=== PATIENT | male | born 1945 | race Caucasian/White ===

== ENCOUNTER 2019-12-25 12:52 | Observation (INO) ==
[2019-12-25 13:45] LABS: INR 1.6; Prothrombin Time 18.4 Seconds (9.4-12.1)
[2019-12-25 13:47] LABS: Activated Partial Thrombo Time 37.7 Seconds (26.0-36.0)
[2019-12-25 13:55] LABS: Hematocrit 23.6 % (37.5-50.1); Hemoglobin 7.5 g/dL (12.9-16.9); Mean Corpuscular HGB Conc 31.8 g/dL (31.6-35.5); Mean Corpuscular Hemoglobin 31.9 pg (28.0-33.3); Mean Corpuscular Volume 100.4 fL (83.0-100.0); Mean Platelet Volume 12.2 fL (9.4-12.4); Platelet Count 179 K/mcL (140-400); Red Blood Count 2.35 M/mcL (4.19-5.50); Red Cell Distribution Width 20.7 % (11.5-14.5); White Blood Count 7.4 K/mcL (4.3-11.1)
[2019-12-25 14:03] LABS: Albumin 4.3 g/dL (3.5-5.7); Albumin/Globulin Ratio 1.3 (1.1-2.2); Bilirubin,Total 0.7 mg/dL (0.3-1.0); Calcium 9.9 mg/dL (8.6-10.3); Globulin 3.2 g/dL (2.4-3.5); Potassium 3.6 mEq/L (3.5-5.1); Total Protein 7.5 g/dL (6.4-8.9)
[2019-12-25 14:22] LABS: Lymphocytes # 1.3 K/mcL (0.6-4.6)
[2019-12-25 14:23] LABS: Monocytes # 0.2 K/mcL (0.0-1.3); Neutrophils # 5.5 K/mcL (1.6-8.9); Platelet Estimate Normal (Normal)
[2019-12-25 14:24] LABS: Anisocytosis 1+ (Not Present); Poikilocytosis 2+ (Not Present)
[2019-12-25] MEDS ORDERED: 0.9 % Sodium Chloride 500 ML ONE (15:08)
[2019-12-25] MEDS ORDERED: Ondansetron 4 MG/2 ML VIAL IVP PRN (15:17)
[2019-12-25] MEDS ORDERED: Naloxone 0.4 MG/ML INJ IVP PRN (15:17)
[2019-12-25] MEDS ORDERED: Acetaminophen 325 MG TABLET PO PRN (15:17)
[2019-12-25] MEDS ORDERED: SODIUM CHLORIDE/NAHCO3/KCL/PEG 4,000 ML SOLN.RECON PO ONE (17:00)
[2019-12-25] MEDS ORDERED: D5% in Water 1,000 ML IVC PRN (18:28)
[2019-12-25] MEDS ORDERED: Dextrose Gel 15 GM/37.5 ML TUBE PO PRN ×2 (18:28)
[2019-12-25] MEDS ORDERED: *HR* Dextrose 50 % in Water (Syg) 50 ML SYRINGE IVP PRN (18:28)
[2019-12-25] MEDS ORDERED: Insulin LISPRO 300 UNITS/3 ML VIAL SQ SCH (21:00)
[2019-12-25] MEDS: lisinopriL 20 MG TABLET PO SCH (21:14)
[2019-12-25 22:22] LABS: Hematocrit 28.5 % (37.5-50.1)
[2019-12-25 22:23] LABS: Hemoglobin 9.1 g/dL (12.9-16.9)
[2019-12-26 08:20] LABS: Calcium 9.8 mg/dL (8.6-10.3); Potassium 3.4 mEq/L (3.5-5.1)
[2019-12-26 08:23] LABS: Hematocrit 26.1 % (37.5-50.1); Hemoglobin 8.4 g/dL (12.9-16.9); Immature Platelets 11.4 % (1.1-6.1); Mean Corpuscular HGB Conc 32.2 g/dL (31.6-35.5); Mean Corpuscular Hemoglobin 31.7 pg (28.0-33.3); Mean Corpuscular Volume 98.5 fL (83.0-100.0); Mean Platelet Volume 13.4 fL (9.4-12.4); Red Blood Count 2.65 M/mcL (4.19-5.50); Red Cell Distribution Width 21.3 % (11.5-14.5); White Blood Count 6.7 K/mcL (4.3-11.1)
[2019-12-26] MEDS: Insulin LISPRO 300 UNITS/3 ML VIAL SQ SCH ×2 (08:59→14:31)
[2019-12-26] MEDS ORDERED: amLODIPine 5 MG TABLET PO SCH (09:00)
[2019-12-26] MEDS ORDERED: *HR* Rivaroxaban 10 MG TABLET PO SCH (09:00)
[2019-12-26] MEDS: lisinopriL 20 MG TABLET PO SCH (09:56)
[2019-12-26] MEDS ORDERED: 0.9 % Sodium Chloride 500 ML IVC SCH (11:45)
[2019-12-26 14:07] VITALS: BP 123/55
== END 2019-12-26 16:04 | disposition home or self-care (01) ==
LOC: 3ANU 12:52 → EMEROOARM 12:52 → SUATTDRO 16:32 → 3ANU 17:27
PROVIDERS: ADMIT Internal Medicine; ATTEND Pharmacist

== ENCOUNTER 2020-01-28 13:29 | Inpatient (IN) ==
[2020-01-28] MEDS ORDERED: Isovue-370 500 ML BOTTLE IVP ONE (13:46)
[2020-01-28 14:11] LABS: INR 1.2; Prothrombin Time 13.9 Seconds (9.4-12.1)
[2020-01-28 14:14] LABS: Hematocrit 26.3 % (37.5-50.1); Hemoglobin 8.1 g/dL (12.9-16.9); Mean Corpuscular HGB Conc 30.8 g/dL (31.6-35.5); Mean Corpuscular Hemoglobin 30.6 pg (28.0-33.3); Mean Corpuscular Volume 99.2 fL (83.0-100.0); Mean Platelet Volume 12.3 fL (9.4-12.4); Platelet Count 253 K/mcL (140-400); Red Blood Count 2.65 M/mcL (4.19-5.50); Red Cell Distribution Width 21.3 % (11.5-14.5); White Blood Count 7.1 K/mcL (4.3-11.1)
[2020-01-28 14:35] LABS: BUN/Creatinine Ratio 23 (6-26); Blood Urea Nitrogen 47 mg/dL (8-23); Calcium 9.5 mg/dL (8.6-10.3); Carbon Dioxide 25 mEq/L (23-29); Chloride 107 mEq/L (98-107); Glucose 172 mg/dL (70-105); Osmolality,Calculated 302 (280-300); Potassium 4.4 mEq/L (3.5-5.1); Sodium 138 mEq/L (136-145); Troponin I < 0.03 ng/mL (< 0.04); eGFR For African Americans 39 (> 60); eGFR For Non-African Americans 32 (> 60)
[2020-01-28] MEDS ORDERED: Furosemide 20 MG/2 ML VIAL IVP ONE (14:48)
[2020-01-28] MEDS ORDERED: Naloxone 0.4 MG/ML INJ IVP PRN (15:50)
[2020-01-28 15:52] LABS: Lymphocytes # 0.9 K/mcL (0.6-4.6); Monocytes # 0.3 K/mcL (0.0-1.3); Neutrophils # 5.3 K/mcL (1.6-8.9)
[2020-01-28 15:53] LABS: Large Platelets Present (Not Present); Platelet Estimate Normal (Normal); Polychromasia 1+ (Not Present)
[2020-01-28 15:54] LABS: Anisocytosis 2+ (Not Present)
[2020-01-28 15:55] LABS: Basophilic Stippling 1+ (Not Present)
[2020-01-28 15:57] LABS: Acanthocytes 2+ (Not Present); Poikilocytosis 2+ (Not Present)
[2020-01-28 16:25] LABS: Alanine Aminotransferase 102 Units/L (7-52); Albumin 4.3 g/dL (3.5-5.7); Albumin/Globulin Ratio 1.4 (1.1-2.2); Alkaline Phosphatase 328 Units/L (34-104); Aspartate Amino Transferase 60 Units/L (13-39); Bilirubin,Direct 0.3 mg/dL (0.0-0.2); Bilirubin,Indirect 0.7 mg/dL (0.0-1.0); Globulin 3.1 g/dL (2.4-3.5); Total Protein 7.4 g/dL (6.4-8.9)
[2020-01-28 16:34] LABS: Thyroid Stimulating Hormone 10.306 mcIU/mL (0.340-5.600)
[2020-01-28] MEDS ORDERED: *HR* Dextrose 50 % in Water (Syg) 50 ML SYRINGE IVP PRN (16:41)
[2020-01-28] MEDS ORDERED: D5% in Water 1,000 ML IVC PRN (16:41)
[2020-01-28] MEDS ORDERED: Dextrose Gel 15 GM/37.5 ML TUBE PO PRN ×2 (16:41)
[2020-01-28] MEDS: Furosemide 20 MG/2 ML VIAL IVP SCH (19:35)
[2020-01-28] MEDS: Sucralfate 1 GM TABLET PO SCH (19:35)
[2020-01-29 06:00] LABS: Calcium 9.2 mg/dL (8.6-10.3)
[2020-01-29] MEDS ORDERED: *HR* Heparin 5,000 UNIT/ML VIAL SQ SCH (06:00)
[2020-01-29 06:42] LABS: Folate > 22.3 ng/mL (3.0-16.0); Vitamin B12 1416 pg/mL (250-1100)
[2020-01-29] MEDS: Famotidine 20 MG TABLET PO SCH (08:18)
[2020-01-29] MEDS: Furosemide 20 MG/2 ML VIAL IVP SCH ×2 (08:18→21:52)
[2020-01-29] MEDS: Sucralfate 1 GM TABLET PO SCH ×2 (08:19→21:53)
[2020-01-29] MEDS: amLODIPine 5 MG TABLET PO SCH (08:19)
[2020-01-29] MEDS: Aspirin Enteric Coated 81 MG Tablet PO SCH (08:19)
[2020-01-29] MEDS: Insulin LISPRO 300 UNITS/3 ML VIAL SQ SCH ×3 (08:37→16:44)
[2020-01-29] MEDS ORDERED: lisinopriL 5 MG TABLET PO SCH (09:00)
[2020-01-29] MEDS ORDERED: Insulin LISPRO 300 UNITS/3 ML VIAL SQ SCH (21:00)
[2020-01-30] MEDS: Famotidine 20 MG TABLET PO SCH (07:18)
[2020-01-30] MEDS: Aspirin Enteric Coated 81 MG Tablet PO SCH (07:18)
[2020-01-30] MEDS: Furosemide 20 MG/2 ML VIAL IVP SCH (07:19)
[2020-01-30] MEDS: Sucralfate 1 GM TABLET PO SCH (07:19)
[2020-01-30] MEDS: Insulin LISPRO 300 UNITS/3 ML VIAL SQ SCH ×2 (07:38→11:26)
[2020-01-30] MEDS: amLODIPine 5 MG TABLET PO SCH (07:38)
[2020-01-30 10:22] LABS: Calcium 9.3 mg/dL (8.6-10.3); Potassium 3.9 mEq/L (3.5-5.1)
[2020-01-30 11:26] VITALS: BP 146/59
[2020-01-30] MEDS ORDERED: *HR* Enoxaparin 30 MG/0.3 ML SYRINGE SQ SCH (21:00)
[2020-01-31] MEDS ORDERED: lisinopriL 5 MG TABLET PO SCH (09:00)
== END 2020-01-30 15:07 | disposition home or self-care (01) | DRG 291 ==
LOC: EMEROOARM 13:29 → 2NENU 13:29
PROVIDERS: ADMIT Internal Medicine; ATTEND Internal Medicine

== ENCOUNTER 2021-05-11 14:23 | Inpatient (IN) ==
[2021-05-11] MEDS ORDERED: Acetaminophen 325 MG TABLET PO ONE (14:50)
[2021-05-11] MEDS ORDERED: 0.9 % Sodium Chloride 1,000 ML IVC ONE (14:58)
[2021-05-11] MEDS ORDERED: Vancomycin 1,500 MG/265 ML IV.SOLN IVPB ONE (14:58)
[2021-05-11] MEDS ORDERED: Cefepime HCl 2,000 MG in Water for inj. (sterile) 10 ML IVP ONE (14:58)
[2021-05-11 15:20] LABS: Hematocrit 24.3 % (37.5-50.1); Hemoglobin 7.9 g/dL (12.9-16.9); Immature Platelets 8.9 % (1.1-6.1); Mean Corpuscular HGB Conc 32.5 g/dL (31.6-35.5); Mean Corpuscular Hemoglobin 29.7 pg (28.0-33.3); Mean Corpuscular Volume 91.4 fL (83.0-100.0); Mean Platelet Volume 12.5 fL (9.4-12.4); Platelet Count 125 K/mcL (140-400); Red Blood Count 2.66 M/mcL (4.19-5.50); Red Cell Distribution Width 16.4 % (11.5-14.5); White Blood Count 2.7 K/mcL (4.3-11.1)
[2021-05-11 15:25] LABS: INR 1.5; Prothrombin Time 16.8 Seconds (9.4-12.1)
[2021-05-11 15:28] LABS: Activated Partial Thrombo Time 32.7 Seconds (26.0-36.0)
[2021-05-11 15:46] LABS: Albumin 3.9 g/dL (3.5-5.7); Albumin/Globulin Ratio 1.2 (1.1-2.2); Bilirubin,Direct 0.3 mg/dL (0.0-0.2); Bilirubin,Indirect 0.7 mg/dL (0.0-1.0); Calcium 8.9 mg/dL (8.6-10.3); Globulin 3.3 g/dL (2.4-3.5); Magnesium 1.9 mg/dL (1.6-2.6); Phosphorous 2.6 mg/dL (2.7-4.5); Potassium 4.3 mEq/L (3.5-5.1); Total Protein 7.2 g/dL (6.4-8.9); Troponin I 0.41 ng/mL (< 0.04)
[2021-05-11 15:59] LABS: Lymphocytes # 0.5 K/mcL (0.6-4.6); Monocytes # 0.1 K/mcL (0.0-1.3); Neutrophils # 2.1 K/mcL (1.6-8.9); Platelet Estimate Decreased (Normal); Reactive Lymphocytes Present (Not Present)
[2021-05-11 16:40] LABS: VBG HCO3 21 mEq/L (21-27); VBG PCO2 32 mmHg (41-51); VBG PH 7.43 pH Units (7.32-7.42); VBG PO2 148 mmHg (25-50)
[2021-05-11] MEDS ORDERED: Aspirin 81 MG TAB.CHEW PO STA (17:00)
[2021-05-11] MEDS ORDERED: Ondansetron ODT 4 MG TAB.RAPDIS SL PRN (17:43)
[2021-05-11] MEDS ORDERED: Mag Hydrox/Al Hydrox/Simeth 30 ML UDC PO PRN (17:43)
[2021-05-11] MEDS ORDERED: Melatonin 3 MG TABLET PO PRN (17:43)
[2021-05-11] MEDS ORDERED: Naloxone 0.4 MG/ML INJ IVP PRN (17:43)
[2021-05-11 17:55] LABS: Adenovirus Not Detected (Not Detect); Bordetella Pertussis Not Detected (Not Detect); Chlamydophila pneumoniae Not Detected (Not Detect); Coronavirus 229E Not Detected (Not Detect); Coronavirus HKU1 Not Detected (Not Detect); Coronavirus NL63 Not Detected (Not Detect); Coronavirus OC43 Not Detected (Not Detect); Human Metapneumovirus Not Detected (Not Detect); Human Rhinovirus/Enterovirus Not Detected (Not Detect); Influenza A Subtype 2009 H1 Not Detected (Not Detect); Influenza B Not Detected (Not Detect); Mycoplasma pneumoniae Not Detected (Not Detect); Parainfluenza Virus 1 Not Detected (Not Detect); Parainfluenza Virus 2 Not Detected (Not Detect); Parainfluenza Virus 3 Not Detected (Not Detect); Parainfluenza Virus 4 Not Detected (Not Detect); Respiratory Syncytial Virus Not Detected (Not Detect); SARS-CoV-2 Not Detected (Not Detect)
[2021-05-11] MEDS ORDERED: Perflutren Lipid Microsphere 1.3 ML in 0.9 % Sodium Chloride 8.7 ML IVP PRN (18:20)
[2021-05-11 19:53] LABS: Bilirubin,Urine Negative (Negative); Blood,Urine Negative (Negative); Clarity,Urine Clear (Clear); Color,Urine Light-Yellow (Yellow); Glucose,Urine (UA) Normal (Normal); Ketones,Urine Negative (Negative); Leukocyte Esterase,Urine Negative (Negative); Mucus,Urine Few per lpf (None-Few); Nitrite,Urine Negative (Negative); Protein,Urine 200 mg/dL (Neg-Trace); RBC,Urine 0-3 per hpf (0-3); Specific Gravity,Urine 1.016 (1.010-1.025); Urobilinogen,Urine Normal (Normal); WBC,Urine 0-3 per hpf (0-3)
[2021-05-12 03:28] LABS: Hematocrit 20.5 % (37.5-50.1); Hemoglobin 6.7 g/dL (12.9-16.9); Immature Granulocytes % 4.2 % (0-4); Lymphocytes # 0.5 K/mcL (0.6-4.6); Lymphocytes % 23.1 %; Mean Corpuscular HGB Conc 32.7 g/dL (31.6-35.5); Mean Corpuscular Hemoglobin 30.2 pg (28.0-33.3); Mean Corpuscular Volume 92.3 fL (83.0-100.0); Mean Platelet Volume 13.6 fL (9.4-12.4); Monocytes # 0.1 K/mcL (0.0-1.3); Platelet Count 102 K/mcL (140-400); Red Blood Count 2.22 M/mcL (4.19-5.50); Red Cell Distribution Width 16.4 % (11.5-14.5); Segmented Neutrophils % 66.7 %; White Blood Count 2.2 K/mcL (4.3-11.1)
[2021-05-12 03:29] LABS: Neutrophils # 1.5 K/mcL (1.6-8.9)
[2021-05-12 03:57] LABS: Calcium 8.3 mg/dL (8.6-10.3); Magnesium 1.9 mg/dL (1.6-2.6); Phosphorous 3.3 mg/dL (2.7-4.5); Potassium 4.4 mEq/L (3.5-5.1)
[2021-05-12 03:58] LABS: Anisocytosis 1+ (Not Present); Microcytosis Present (Not Present)
[2021-05-12 03:59] LABS: Hypochromasia Present (Not Present); Platelet Estimate Slight Decrease (Normal); Poikilocytosis 1+ (Not Present); Schistocytes 1+ (Not Present)
[2021-05-12 04:00] LABS: Reactive Lymphocytes Present (Not Present); Tear Drop Cells 1+ (Not Present)
[2021-05-12] MEDS: Cefepime HCl 2,000 MG in Water for inj. (sterile) 20 ML IVP SCH ×2 (06:06→16:57)
[2021-05-12] MEDS ORDERED: *HR* Metoprolol 5 MG/5 ML VIAL IVP ONE ×2 (08:53→09:02)
[2021-05-12] MEDS ORDERED: lisinopriL 5 MG TABLET PO SCH (09:00)
[2021-05-12] MEDS ORDERED: Famotidine 20 MG TABLET PO SCH (09:00)
[2021-05-12] MEDS: Famotidine 20 MG TABLET PO SCH (09:05)
[2021-05-12] MEDS: amLODIPine 5 MG TABLET PO SCH (09:06)
[2021-05-12] MEDS: Sucralfate 1 GM TABLET PO SCH ×2 (09:08→20:42)
[2021-05-12 11:02] LABS: % Iron Saturation 18 % (20-55); Iron 28 mcg/dL (65-175); Transferrin 114 mg/dL (203-362)
[2021-05-12 11:20] LABS: Ferritin > 1500 ng/mL (20-250)
[2021-05-12] MEDS ORDERED: 0.9 % Sodium Chloride 250 ML ONE (12:11)
[2021-05-12] MEDS ORDERED: Vancomycin 1,500 MG/265 ML IV.SOLN IVPB SCH (16:00)
[2021-05-12 17:43] LABS: Hemoglobin 7.6 g/dL (12.9-16.9)
[2021-05-12 17:45] LABS: Hematocrit 23.1 % (37.5-50.1)
[2021-05-12] MEDS ORDERED: Acetaminophen 325 MG TABLET PO ONE (23:13)
[2021-05-13 01:40] LABS: Calcium 7.9 mg/dL (8.6-10.3); Potassium 3.9 mEq/L (3.5-5.1)
[2021-05-13 02:35] LABS: Hemoglobin 6.5 g/dL (12.9-16.9); Monocytes % 4.3 %; Red Cell Distribution Width 17.8 % (11.5-14.5)
[2021-05-13 02:36] LABS: Hematocrit 20.1 % (37.5-50.1); Immature Granulocytes % 6.7 % (0-4); Immature Platelets 9.8 % (1.1-6.1); Lymphocytes # 0.4 K/mcL (0.6-4.6); Lymphocytes % 18.1 %; Mean Corpuscular HGB Conc 32.3 g/dL (31.6-35.5); Mean Corpuscular Hemoglobin 29.3 pg (28.0-33.3); Mean Corpuscular Volume 90.5 fL (83.0-100.0); Monocytes # 0.1 K/mcL (0.0-1.3); Neutrophils # 1.5 K/mcL (1.6-8.9); Red Blood Count 2.22 M/mcL (4.19-5.50); Segmented Neutrophils % 69.9 %; White Blood Count 2.1 K/mcL (4.3-11.1)
[2021-05-13 02:37] LABS: Platelet Count 68 K/mcL (140-400)
[2021-05-13 02:38] LABS: Platelet Estimate Slight Decrease (Normal)
[2021-05-13] MEDS: Doxycycline 100 MG in 0.9 % Sodium Chloride Mini Bag 100 ML IVPB SCH ×2 (04:44→18:35)
[2021-05-13] MEDS: Cefepime HCl 2,000 MG in Water for inj. (sterile) 20 ML IVP SCH (05:37)
[2021-05-13] MEDS ORDERED: Acetaminophen 325 MG TABLET PO ONE (07:31)
[2021-05-13] MEDS ORDERED: Ipratropium/Albuterol Neb 3 ML IH PRN (07:34)
[2021-05-13] MEDS ORDERED: 0.9 % Sodium Chloride 250 ML IVC SCH (07:45)
[2021-05-13] MEDS ORDERED: Furosemide 40 MG TABLET PO SCH (09:00)
[2021-05-13 09:04] LABS: Hemoglobin 7.6 g/dL (12.9-16.9)
[2021-05-13 09:05] LABS: Hematocrit 23.2 % (37.5-50.1)
[2021-05-13] MEDS: Famotidine 20 MG TABLET PO SCH (09:07)
[2021-05-13] MEDS: Folic Acid 1 MG TABLET PO SCH (09:07)
[2021-05-13] MEDS: Sucralfate 1 GM TABLET PO SCH ×2 (09:07→20:22)
[2021-05-13 10:34] LABS: Amorphous Sediment,Urine Few per hpf (None-Few); Bacteria,Urine Few per hpf (None-Few); Bilirubin,Urine Negative (Negative); Blood,Urine Small (Negative); Clarity,Urine Turbid (Clear); Color,Urine Yellow (Yellow); Glucose,Urine (UA) Normal (Normal); Ketones,Urine Trace mg/dL (Negative); Leukocyte Esterase,Urine Negative (Negative); Mucus,Urine Few per lpf (None-Few); Nitrite,Urine Negative (Negative); PH,Urine 5.5 pH Units (5.0-8.0); Protein,Urine 200 mg/dL (Neg-Trace); RBC,Urine 0-3 per hpf (0-3); Specific Gravity,Urine 1.016 (1.010-1.025); Squamous Epithelial Cell,Urine Few per hpf (None-Few); Urobilinogen,Urine Normal (Normal)
[2021-05-13 11:25] LABS: Adenovirus Not Detected (Not Detect); Bordetella Pertussis Not Detected (Not Detect); Chlamydophila pneumoniae Not Detected (Not Detect); Coronavirus 229E Not Detected (Not Detect); Coronavirus HKU1 Not Detected (Not Detect); Coronavirus NL63 Not Detected (Not Detect); Coronavirus OC43 Not Detected (Not Detect); Human Metapneumovirus Not Detected (Not Detect); Human Rhinovirus/Enterovirus Not Detected (Not Detect); Influenza A Subtype 2009 H1 Not Detected (Not Detect); Influenza B Not Detected (Not Detect); Mycoplasma pneumoniae Not Detected (Not Detect); Parainfluenza Virus 1 Not Detected (Not Detect); Parainfluenza Virus 2 Not Detected (Not Detect); Parainfluenza Virus 3 Not Detected (Not Detect); Parainfluenza Virus 4 Not Detected (Not Detect); Respiratory Syncytial Virus Not Detected (Not Detect); SARS-CoV-2 Not Detected (Not Detect)
[2021-05-13] MEDS: 0.9 % Sodium Chloride 1,000 ML IVC SCH (11:46)
[2021-05-13] MEDS: amLODIPine 5 MG TABLET PO SCH (11:46)
[2021-05-13 14:27] LABS: Sodium, Urine 27.3 mEq/L
[2021-05-13] MEDS: Piperacillin/Tazobactam 3.375 GM in 0.9 % Sodium Chloride Mini Bag 100 ML IVPB SCH (18:35)
[2021-05-14] MEDS: Piperacillin/Tazobactam 3.375 GM in 0.9 % Sodium Chloride Mini Bag 100 ML IVPB SCH ×3 (01:46→21:03)
[2021-05-14] MEDS: Doxycycline 100 MG in 0.9 % Sodium Chloride Mini Bag 100 ML IVPB SCH ×2 (05:43→21:10)
[2021-05-14 06:01] LABS: Hemoglobin 6.2 g/dL (12.9-16.9); Immature Platelets 15.2 % (1.1-6.1); Lymphocytes # 0.3 K/mcL (0.6-4.6); Mean Corpuscular HGB Conc 32.6 g/dL (31.6-35.5); Mean Corpuscular Hemoglobin 29.2 pg (28.0-33.3); Mean Corpuscular Volume 89.6 fL (83.0-100.0); Monocytes # 0.1 K/mcL (0.0-1.3); Red Blood Count 2.12 M/mcL (4.19-5.50); Red Cell Distribution Width 17.2 % (11.5-14.5); White Blood Count 1.8 K/mcL (4.3-11.1)
[2021-05-14 06:02] LABS: Platelet Count 58 K/mcL (140-400)
[2021-05-14 06:22] LABS: Neutrophils # 1.3 K/mcL (1.6-8.9)
[2021-05-14 06:23] LABS: Anisocytosis 1+ (Not Present); Platelet Estimate Decreased (Normal); Poikilocytosis 1+ (Not Present)
[2021-05-14 06:24] LABS: Microcytosis Present (Not Present)
[2021-05-14 07:16] LABS: Hepatitis B Surface Antigen Nonreactive (Nonreactive)
[2021-05-14 07:45] LABS: Hepatitis C Virus Antibody Nonreactive (Nonreactive)
[2021-05-14 07:46] LABS: Hepatitis B Core IgM Nonreactive (Nonreactive)
[2021-05-14 07:47] LABS: Hepatitis A Antibody IgM Nonreactive (Nonreactive)
[2021-05-14] MEDS: 0.9 % Sodium Chloride 1,000 ML IVC SCH (08:40)
[2021-05-14] MEDS ORDERED: Furosemide 20 MG/2 ML VIAL IVP ONE (08:54)
[2021-05-14 10:10] LABS: Complement C3 116 mg/dL (87-200); Rheumatoid Factor < 10 IU/mL (Less than 14)
[2021-05-14] MEDS: Sucralfate 1 GM TABLET PO SCH ×2 (10:19→21:11)
[2021-05-14] MEDS: Famotidine 20 MG TABLET PO SCH (10:20)
[2021-05-14] MEDS: amLODIPine 5 MG TABLET PO SCH (10:20)
[2021-05-14] MEDS: Folic Acid 1 MG TABLET PO SCH (10:20)
[2021-05-14 10:25] LABS: Hemoglobin 6.3 g/dL (12.9-16.9)
[2021-05-14 10:27] LABS: Hematocrit 19.9 % (37.5-50.1)
[2021-05-14] MEDS: Albumin 25% 25gram/100mL 25 GM/100 ML IV.SOLN IVPB SCH ×2 (10:56→18:42)
[2021-05-14] MEDS: Ipratropium/Albuterol Neb 3 ML IH SCH ×3 (11:30→20:04)
[2021-05-14 13:17] LABS: Hematocrit 18.7 % (37.5-50.1)
[2021-05-14] MEDS ORDERED: 0.9 % Sodium Chloride 250 ML ONE (14:38)
[2021-05-14] MEDS ORDERED: SODIUM CHLORIDE 0.9% IV ONE (16:11)
[2021-05-14] MEDS ORDERED: RASBURICASE IV ONE (16:11)
[2021-05-14] MEDS ORDERED: Ondansetron 4 MG/2 ML VIAL IVP PRN (17:34)
[2021-05-14] MEDS ORDERED: Acetaminophen IV 1,000 MG/100 ML BAG IVPB ONE (17:40)
[2021-05-14] MEDS ORDERED: Acetaminophen IV 1,000 MG/100 ML BAG IVPB STA (17:44)
[2021-05-14 18:17] LABS: ABG Base Excess -10 mEq/L (-2 to 3); ABG HCO3 16 mEq/L (21-27); ABG Oxygen Saturation 94 % (95-98); ABG PCO2 33 mmHg (35-45); ABG PO2 76 mmHg (85-104); ABG TCO2 17 mEq/L (20-26)
[2021-05-14] MEDS: allopurinoL 100 MG TABLET PO SCH (18:42)
[2021-05-14 20:17] LABS: Hemoglobin 6.4 g/dL (12.9-16.9)
[2021-05-14 20:19] LABS: Hematocrit 19.6 % (37.5-50.1)
[2021-05-14 20:41] LABS: Lactate Dehydrogenase 224 Units/L (140-271)
[2021-05-14 20:49] LABS: Acetaminophen 11 mcg/mL (10-20)
[2021-05-15] MEDS: Albumin 25% 25gram/100mL 25 GM/100 ML IV.SOLN IVPB SCH ×2 (01:35→10:29)
[2021-05-15 01:45] LABS: Mean Corpuscular Volume 89.6 fL (83.0-100.0)
[2021-05-15 01:47] LABS: Basophils % 0.8 %; Hematocrit 21.6 % (37.5-50.1); Immature Granulocytes % 6.5 % (0-4); Immature Platelets 14.7 % (1.1-6.1); Lymphocytes # 0.2 K/mcL (0.6-4.6); Lymphocytes % 16.1 %; Mean Corpuscular HGB Conc 32.4 g/dL (31.6-35.5); Monocytes % 3.2 %; Neutrophils # 0.9 K/mcL (1.6-8.9); Red Blood Count 2.41 M/mcL (4.19-5.50); Red Cell Distribution Width 16.9 % (11.5-14.5); Segmented Neutrophils % 73.4 %; White Blood Count 1.2 K/mcL (4.3-11.1)
[2021-05-15 01:50] LABS: Platelet Count 50 K/mcL (140-400)
[2021-05-15 02:02] LABS: Calcium 8.3 mg/dL (8.6-10.3); Potassium 3.8 mEq/L (3.5-5.1)
[2021-05-15 02:10] LABS: Burr Cells 1+ (Not Present); Platelet Estimate Decreased (Normal); Poikilocytosis 2+ (Not Present); Schistocytes 1+ (Not Present)
[2021-05-15] MEDS: Ipratropium/Albuterol Neb 3 ML IH SCH ×6 (04:03→19:49)
[2021-05-15] MEDS: Piperacillin/Tazobactam 3.375 GM in 0.9 % Sodium Chloride Mini Bag 100 ML IVPB SCH ×2 (05:50→12:51)
[2021-05-15 06:09] LABS: Calcium 8.5 mg/dL (8.6-10.3); Magnesium 1.8 mg/dL (1.6-2.6); Potassium 3.8 mEq/L (3.5-5.1)
[2021-05-15] MEDS ORDERED: Acetaminophen IV 1,000 MG/100 ML BAG IVPB ONE (06:32)
[2021-05-15] MEDS: Doxycycline 100 MG in 0.9 % Sodium Chloride Mini Bag 100 ML IVPB SCH (08:22)
[2021-05-15 08:26] LABS: ABG Base Excess -12 mEq/L (-2 to 3); ABG HCO3 14 mEq/L (21-27); ABG Oxygen Saturation 96 % (95-98); ABG PCO2 30 mmHg (35-45); ABG PH 7.27 pH Units (7.32-7.45); ABG PO2 92 mmHg (85-104); ABG TCO2 15 mEq/L (20-26)
[2021-05-15] MEDS ORDERED: Sodium Bicarbonate 50 MEQ/50 ML VIAL IVP ONE (09:00)
[2021-05-15] MEDS: Famotidine 20 MG TABLET PO SCH (10:30)
[2021-05-15] MEDS: Sucralfate 1 GM TABLET PO SCH (10:30)
[2021-05-15] MEDS: allopurinoL 100 MG TABLET PO SCH (10:30)
[2021-05-15] MEDS: Folic Acid 1 MG TABLET PO SCH (10:30)
[2021-05-15] MEDS: predniSONE 20 MG TABLET PO SCH (10:34)
[2021-05-15] MEDS: amLODIPine 5 MG TABLET PO SCH (10:37)
[2021-05-15 12:35] LABS: Calcium 8.4 mg/dL (8.6-10.3); Potassium 3.8 mEq/L (3.5-5.1)
[2021-05-15] MEDS ORDERED: Haloperidol Lactate 5 MG/ML VIAL IVP PRN (14:53)
[2021-05-15] MEDS ORDERED: Atropine 1% Opth Drops 100 DROP/5 ML BOTTLE SL PRN (14:54)
[2021-05-15] MEDS ORDERED: Acetaminophen 650 MG RECTAL SUPP RC PRN (14:54)
[2021-05-15 22:17] LABS: Lambda Qnt Free Light Chains 94.51 mg/L (5.71-26.30)
[2021-05-16] MEDS: Ipratropium/Albuterol Neb 3 ML IH SCH ×3 (00:04→07:40)
[2021-05-16] MEDS: predniSONE 20 MG TABLET PO SCH (09:14)
[2021-05-16] MEDS: amLODIPine 5 MG TABLET PO SCH (09:15)
[2021-05-16] MEDS: allopurinoL 100 MG TABLET PO SCH (09:15)
[2021-05-16 16:09] LABS: ANA IgG by ELISA NONE DETECTED (None Detected)
[2021-05-17] MEDS: allopurinoL 100 MG TABLET PO SCH (09:05)
[2021-05-17] MEDS: predniSONE 20 MG TABLET PO SCH (09:05)
[2021-05-17] MEDS: amLODIPine 5 MG TABLET PO SCH (09:05)
[2021-05-17 20:14] VITALS: TEMP 98.1
[2021-05-17 23:55] LABS: ANCA IFA Titer <1:20 (<1:20)
[2021-05-18 00:10] LABS: Alpha 2 Globulin (PEP) 0.84 g/dL (0.48-1.05); Beta Globulin (PEP) 0.59 g/dL (0.48-1.10)
[2021-05-18 08:05] VITALS: BP 115/58; PULSE 90; O2SAT 95
[2021-05-18] MEDS: *HR* LORazepam Oral Conc 2 MG/ML SL PRN ×3 (08:06→18:38)
[2021-05-18] MEDS: allopurinoL 100 MG TABLET PO SCH (08:07)
[2021-05-18] MEDS: predniSONE 20 MG TABLET PO SCH (08:08)
[2021-05-18] MEDS: amLODIPine 5 MG TABLET PO SCH (08:08)
[2021-05-18 10:59] LABS: ANCA IFA Pattern NONE DETECTED (None Detected); Serine Protease-3 Antibody 1 AU/mL (0-19)
[2021-05-18 11:03] LABS: IFE Reflexed NOT DONE
== END 2021-05-18 18:49 | disposition hospice, home (50) | DRG 193 ==
LOC: SUATTDRO → EMEROOARM 14:23 → 2ANU 14:23 → SUATTDRO 19:59 → 2ANU 21:02
PROVIDERS: ADMIT Family Medicine; ATTEND Family Medicine